=== PATIENT | female | born 1960 | race Two or more races ===

== ENCOUNTER 2016-06-20 06:28 | Day surgery (SDC) | payer OTHER | END 2016-06-20 12:50 | disposition home or self-care (01) | LOC: DS 06:28 | PROVIDERS: ATTEND Internal Medicine Gastroenterology | DX: K21.9 Gastro-esophageal reflux disease without esophagitis (principal); I10 Essential (primary) hypertension | CPT/HCPCS: 88108-TC; 88305-TC; 88342; J2704; Z7610 ==